=== PATIENT | male | born 1950 | race Caucasian/White ===

== ENCOUNTER → 2017-03-28 | Outpatient (CLI) | payer MEDICARE | END | disposition disaster alternative care site (69) | LOC: GAMB 09:42 → GAIR 09:42 | DX: R06.9 Unspecified abnormalities of breathing (principal); J96.90 Respiratory failure, unspecified, unspecified whether with hypoxia or hypercapnia; J44.9 Chronic obstructive pulmonary disease, unspecified; B19.20 Unspecified viral hepatitis C without hepatic coma; D69.6 Thrombocytopenia, unspecified; R11.12 Projectile vomiting; R19.7 Diarrhea, unspecified; A41.9 Sepsis, unspecified organism; E87.1 Hypo-osmolality and hyponatremia; R41.0 Disorientation, unspecified; Z94.4 Liver transplant status; Z79.52 Long term (current) use of systemic steroids; Z79.899 Other long term (current) drug therapy; Z85.89 Personal history of malignant neoplasm of other organs and systems | CPT/HCPCS: A0422; A0431; A0436; J2250; J3010; J7030; J7050 ==